=== PATIENT | female | born 1980 | race Caucasian/White ===

== ENCOUNTER 2018-12-30 16:34 | Inpatient (IN) | payer BC ==
[~2018-12-30] VITALS: Ht 167.6 cm; Wt 109.7 kg
[~2018-12-30 16:34] MED LIST: EST1T PO
[2018-12-30] MEDS ORDERED: morphine 4 MG/ML inj SYRINge IV PRN (16:50)
[2018-12-30] MEDS ORDERED: ondansetron/PF 4mg/2ml inj IV ONE (16:50)
[2018-12-30] MEDS ORDERED: normal saline 1000ML IV soln IVB ONE (16:50)
[2018-12-30] MEDS ORDERED: iohexol 300mg/ml 100ml inj. ONE (17:15)
--- NOTE | 2018-12-30 17:20 | NUR ---
PT TO CT
[2018-12-30 17:28] LABS: URINE HCG NEGATIVE (NEG)
[2018-12-30 17:29] LABS: CLARITY,URINE CLEAR (Clear); COLOR,URINE YELLOW (Yellow); GLUCOSE, URINE NEGATIVE (Neg); KETONES,URINE NEGATIVE (Neg); LEUKOCYTE ESTERASE ,URINE NEGATIVE (Neg); NITRITES, URINE NEGATIVE (Neg); OCCULT BLOOD,URINE TRACE-INTACT (Neg); PH,URINE 7.5 (4.8-8.0); PROTEIN,URINE NEGATIVE (Neg); UROBILINOGEN,URINE 0.2 E.U/dL (0.2-1.0)
[2018-12-30 17:32] LABS: UA COLLECTION TYPE CLN CATCH MIDSTREAM
[2018-12-30 17:35] LABS: BASOPHILS % (AUTO) 0.3 % (0-1); EOSINOPHILS % (AUTO) 0.2 % (0-6); HEMATOCRIT 43.7 % (35.0-45.0); HEMOGLOBIN 14.8 g/dl (12.0-16.0); LYMPHOCYTES # (AUTO) 0.5 X10'3 (1.1-4.8); LYMPHOCYTES % (AUTO) 5.3 % (21-51); MEAN CORPUSCULAR HEMOGLOBIN 29.8 PG (27.0-31.0); MEAN CORPUSCULAR HGB CONC 33.9 g/dL (33.0-36.5); MEAN CORPUSCULAR VOLUME 88.1 FL (78-98); MEAN PLATELET VOLUME 8.2 FL (7.4-10.4); MONOCYTES # (AUTO) 0.6 X10'3 (0-0.9); NEUTROPHILS # (AUTO) 8.7 X10'3 (1.8-7.7); NEUTROPHILS % (AUTO) 88.2 % (42-75); PLATELET COUNT 172 X10'3 (140-440); RED BLOOD COUNT 4.95 X10'6 (4.20-5.60); RED CELL DISTRIBUTION WIDTH 12.8 % (11.5-14.5); WHITE BLOOD COUNT 9.9 X10'3 (4.5-11.0)
[2018-12-30 17:36] LABS: SQUAMOUS EPITHELIAL CELL,UR MODERATE /LPF (FEW)
[2018-12-30 17:37] LABS: BACTERIA,URINE 1+ /HPF (Neg); WBC,URINE 0-4 /HPF (0-4)
[2018-12-30 17:40] LABS: ALANINE AMINOTRANSFERASE 30 U/L (12-78); ALBUMIN 4.1 G/DL (3.4-5.0); ALKALINE PHOSPHATASE 54 IU/L (46-116); ANION GAP 7 (8-16); ASPARTATE AMINO TRANSFERASE 17 U/L (10-37); BILIRUBIN,TOTAL 0.7 MG/DL (0.1-1.0); BLOOD UREA NITROGEN 10 MG/DL (7-18); BUN/CREATININE RATIO 12.2 (6.6-38.0); CALCIUM 8.7 MG/DL (8.5-10.1); CHLORIDE 103 MMOL/L (99-107); CREATININE 0.82 MG/DL (0.40-0.90); GLUCOSE 102 MG/DL (70-104); SODIUM 139 MMOL/L (135-145); TOTAL CARBON DIOXIDE 28.7 MMOL/L (24-32); TOTAL PROTEIN 8.1 G/DL (6.4-8.2); eGFR 77 ML/MIN
[2018-12-30] MEDS ORDERED: ketorolac trometh. 30mg/ml inj. IV ONE (19:00)
[2018-12-30] MEDS ORDERED: piperacillin/tazo 3.375gm/50ml 50 ML IV ONE (19:55)
[2018-12-30] MEDS ORDERED: morphine 2 MG/ML inj. syringe IV PRN (21:15)
[2018-12-30] MEDS ORDERED: ondansetron/PF 4mg/2ml inj IV PRN (21:15)
--- NOTE | 2018-12-30 22:40 | NUR ---
Patient in room [facility]. I have received report from Nayana Wyatt Rn and had the opportunity to ask questions and will assume patient care upon arrival to the floor. Addendum: 12/31/18 at 0246 by Rkia Gibbons RN Amended: Links added.
--- NOTE | 2018-12-30 22:45 | NUR ---
received pt to the floor in w/c and used brp upon entering the room. pt given chicken broth and then made Npo after this. answered questions for admit. pt a/o pleasant without s&s of distress.
--- NOTE | 2018-12-30 23:30 | NUR ---
admit completed and no complaints at this time.
[2018-12-31] VITALS (15 sets, daily range): BP systolic 112–129; BP diastolic 54–82
--- NOTE | 2018-12-31 | NUR ---
surgical hibicleans/betasept shower done and pt back in the room for this. in a clean bed.
--- NOTE | 2018-12-31 00:30 | NUR ---
pt set up to iv fluids now c/o abd pain 10/03 and medicated with 2mg of morphine iv for this.
[2018-12-31] MEDS: morphine 2 MG/ML inj. syringe IV PRN ×2 (00:43→12:02)
[2018-12-31] MEDS: normal saline 1000ml 1,000 ML IV SCH ×3 (00:43→15:34)
--- NOTE | 2018-12-31 01:30 | NUR ---
pt given warm blanket per request.
--- NOTE | 2018-12-31 02:51 | NUR ---
pt resting eyes closed without changes at this time. earlier preop teaching done and pt used the is unit.
--- NOTE | 2018-12-31 03:27 | NUR ---
resting without changes.
[2018-12-31] MEDS: piperacillin/tazo 3.375gm/50ml 50 ML IV SCH ×3 (04:33→20:41)
--- NOTE | 2018-12-31 05:14 | NUR ---
up to brp to void then back to bed. pt npo
[2018-12-31 06:12] LABS: HEMOGLOBIN 12.5 g/dl (12.0-16.0); WHITE BLOOD COUNT 4.4 X10'3 (4.5-11.0)
[2018-12-31 06:16] LABS: BASOPHILS % (AUTO) 0.3 % (0-1); EOSINOPHILS % (AUTO) 0.6 % (0-6); LYMPHOCYTES # (AUTO) 0.9 X10'3 (1.1-4.8); LYMPHOCYTES % (AUTO) 19.9 % (21-51); MEAN CORPUSCULAR HEMOGLOBIN 29.9 PG (27.0-31.0); MEAN CORPUSCULAR HGB CONC 33.7 g/dL (33.0-36.5); MEAN CORPUSCULAR VOLUME 88.9 FL (78-98); MEAN PLATELET VOLUME 7.8 FL (7.4-10.4); MONOCYTES # (AUTO) 0.5 X10'3 (0-0.9); MONOCYTES % (AUTO) 10.3 % (2-12); NEUTROPHILS % (AUTO) 68.9 % (42-75); PLATELET COUNT 134 X10'3 (140-440); RED BLOOD COUNT 4.16 X10'6 (4.20-5.60)
--- NOTE | 2018-12-31 06:20 | NUR ---
Patient in room [facility]. I have received report from ALIN Meléndez and had the opportunity to ask questions and assume patient care.
--- NOTE | 2018-12-31 06:36 | NUR ---
Problems reprioritized. Patient report given, questions answered & plan of care reviewed with Melissa Dumas. Addendum: 12/31/18 at 0636 by Rika Gibbons RN Amended: Links added.
[2018-12-31 06:41] LABS: ALANINE AMINOTRANSFERASE 24 U/L (12-78); ALBUMIN 3.1 G/DL (3.4-5.0); ALBUMIN/GLOBULIN RATIO 0.9 (1.1-1.5); ALKALINE PHOSPHATASE 43 IU/L (46-116); ANION GAP 7 (8-16); ASPARTATE AMINO TRANSFERASE 10 U/L (10-37); BILIRUBIN,TOTAL 0.6 MG/DL (0.1-1.0); BLOOD UREA NITROGEN 9 MG/DL (7-18); BUN/CREATININE RATIO 12.3 (6.6-38.0); CALCIUM 7.4 MG/DL (8.5-10.1); CHLORIDE 107 MMOL/L (99-107); CREATININE 0.73 MG/DL (0.40-0.90); GLUCOSE 98 MG/DL (70-104); POTASSIUM 3.5 MMOL/L (3.5-5.1); SODIUM 141 MMOL/L (135-145); TOTAL CARBON DIOXIDE 27.5 MMOL/L (24-32); TOTAL PROTEIN 6.4 G/DL (6.4-8.2); eGFR 88 ML/MIN
[2018-12-31] MEDS ORDERED: ceFOXitin 2 GM ADDvantage bag 100 ML IV ONE (09:10)
[2018-12-31 10:12] LABS: PARTIAL THROMBOPLASTIN TIME 31 SECONDS (22-32)
[2018-12-31] MEDS ORDERED: BUPIVAcaine/PF 2.5 mg/ml (0.25%) 30ml vial ONE (17:09)
[2018-12-31] MEDS ORDERED: LIDOcaine 1% 30ml preserv. free vial ONE (17:09)
[2018-12-31] MEDS ORDERED: sevoflurane 250ml liquid IH ONE (17:36)
[2018-12-31] MEDS ORDERED: midazolam 2 mg/2 ml injection ONE ×2 (17:41)
[2018-12-31] MEDS ORDERED: fentaNYL /PF 50mcg/ml 5ml ampule ONE (17:43)
[2018-12-31] MEDS ORDERED: dexamethasone sod phosphate 4mg/ml inj. ONE (18:21)
[2018-12-31] MEDS ORDERED: ondansetron/PF 4mg/2ml inj ONE (18:21)
[2018-12-31] MEDS ORDERED: propofol inj 20 ML IV ONE (18:22)
[2018-12-31] MEDS ORDERED: rocuronium 10mg/ml inj IV ONE (18:22)
--- NOTE | 2018-12-31 18:25 | NUR ---
Problems reprioritized. Patient report given, questions answered & plan of care reviewed with ALIN Meléndez.
[2018-12-31] MEDS ORDERED: neostigmine methylsulfate 1 MG/ML 10ml vial ONE (18:37)
[2018-12-31] MEDS ORDERED: glycopyrrolate 0.2mg/ml inj ONE (18:37)
--- NOTE | 2018-12-31 18:37 | NUR ---
Patient in room [facility]. I have received report from TOBY OGDEN and had the opportunity to ask questions and assume patient care. Addendum: 12/31/18 at 1837 by Rika Gibbons RN Amended: Links added.
[2018-12-31] MEDS ORDERED: HYDROcodone/acetaminophen 10/325mg tab PO PRN (18:50)
[2018-12-31] MEDS ORDERED: ondansetron/PF 4mg/2ml inj IV PRN ×2 (18:50→18:55)
[2018-12-31] MEDS ORDERED: HYDROcodone/acetaminophen 5mg/325mg tablet PO PRN (18:50)
[2018-12-31] MEDS ORDERED: ringers solution, lacted 1,000 ML IV SCH (18:53)
[2018-12-31] MEDS ORDERED: meperidine/PF 25mg/ml syringe IV PRN ×3 (18:55)
[2018-12-31] MEDS ORDERED: morphine 4 MG/ML inj SYRINge IV PRN ×2 (18:55)
[2018-12-31] MEDS ORDERED: proCHLORperazine 10 MG/2 ml inj IV PRN (18:55)
--- NOTE | 2018-12-31 19:15 | NUR ---
Patient in room [facility]. I have received report from chemical recovery operator and had the opportunity to ask questions and will assume patient care upon arrival back to the room.
--- NOTE | 2018-12-31 19:15 | NUR ---
Report called to receiving nurse. Transferred via BED Belongings . Special Issues communicated to receiving nurse.AWAKE AND ORIENTED. VITALS STABLE. DRESSINGS DI. TOBY PAIN. TO SURGICAL RM 359C AT THIS TIME.
--- NOTE | 2018-12-31 19:30 | NUR ---
pt back from the recovery room in bed and a/o drowsy on 02. and son at bedside. x 3 lap sites dry and intact bandaides and using Is unit up to 2500. pt encouraged to ambulate with hypoactive bowel sounds. ice chips given to pt.
--- NOTE | 2018-12-31 20:40 | NUR ---
up with assist to bathroom to ambulated then up walking with one in the persaud. teaching on how to get in and out of bed done no complaints of pain.
--- NOTE | 2018-12-31 22:28 | NUR ---
PT UP AMBULATING SECOND [id number] FT TOLERATED WELL.
[2019-01-01] VITALS: BP 117/71
[2019-01-01] MEDS: morphine 2 MG/ML inj. syringe IV PRN (00:50)
--- NOTE | 2019-01-01 00:50 | NUR ---
medicated for pain with 2mg of morphine and new bag on iv fluids hung. up to brp to void.
[2019-01-01] MEDS: normal saline 1000ml 1,000 ML IV SCH ×2 (00:51→10:57)
--- NOTE | 2019-01-01 01:30 | NUR ---
up bathroom then ambulating in the persaud no s&s of distress at this time.
--- NOTE | 2019-01-01 03:24 | NUR ---
resting on right side eyes closed no changes.
[2019-01-01 04:00] VITALS: BP 119/74
--- NOTE | 2019-01-01 04:04 | NUR ---
resting right side without changes.
[2019-01-01] MEDS: piperacillin/tazo 3.375gm/50ml 50 ML IV SCH ×2 (04:22→12:00)
--- NOTE | 2019-01-01 04:40 | NUR ---
PT UP AMBULATING IN THE ABAD FOR 2 LAPS AND USING THE IS UNIT.
[2019-01-01 05:00] LABS: BASOPHILS % (AUTO) 0.1 % (0-1); EOSINOPHILS % (AUTO) 0.1 % (0-6); HEMATOCRIT 38.2 % (35.0-45.0); HEMOGLOBIN 13.3 g/dl (12.0-16.0); LYMPHOCYTES # (AUTO) 0.4 X10'3 (1.1-4.8); LYMPHOCYTES % (AUTO) 5.7 % (21-51); MEAN CORPUSCULAR HEMOGLOBIN 30.6 PG (27.0-31.0); MEAN CORPUSCULAR HGB CONC 34.7 g/dL (33.0-36.5); MEAN CORPUSCULAR VOLUME 88.1 FL (78-98); MONOCYTES # (AUTO) 0.1 X10'3 (0-0.9); MONOCYTES % (AUTO) 1.9 % (2-12); NEUTROPHILS # (AUTO) 6.1 X10'3 (1.8-7.7); NEUTROPHILS % (AUTO) 92.2 % (42-75); PLATELET COUNT 154 X10'3 (140-440); RED BLOOD COUNT 4.34 X10'6 (4.20-5.60); RED CELL DISTRIBUTION WIDTH 12.6 % (11.5-14.5); WHITE BLOOD COUNT 6.6 X10'3 (4.5-11.0)
[2019-01-01 05:11] LABS: ALANINE AMINOTRANSFERASE 27 U/L (12-78); ALBUMIN 3.3 G/DL (3.4-5.0); ALBUMIN/GLOBULIN RATIO 0.9 (1.1-1.5); ALKALINE PHOSPHATASE 44 IU/L (46-116); ANION GAP 11 (8-16); ASPARTATE AMINO TRANSFERASE 15 U/L (10-37); BILIRUBIN,TOTAL 0.4 MG/DL (0.1-1.0); BLOOD UREA NITROGEN 5 MG/DL (7-18); BUN/CREATININE RATIO 7.9 (6.6-38.0); CALCIUM 9.1 MG/DL (8.5-10.1); CHLORIDE 108 MMOL/L (99-107); CREATININE 0.63 MG/DL (0.40-0.90); GLUCOSE 133 MG/DL (70-104); POTASSIUM 4.2 MMOL/L (3.5-5.1); SODIUM 143 MMOL/L (135-145); TOTAL CARBON DIOXIDE 24.5 MMOL/L (24-32); TOTAL PROTEIN 7.1 G/DL (6.4-8.2); eGFR > 90 ML/MIN
--- NOTE | 2019-01-01 05:48 | NUR ---
Student documentation: I have reviewed and agree with all interventions, assessments performed and documented by MARGE OGDEN STUDENT.Student Medication Administration: For this medication-pass time frame, all medication were reviewed, dispensed, administered and documented per hospital policy by MARGE Lacey RN. Addendum: 01/01/19 at 0549 by Rika Gibbons RN Amended: Links added.
--- NOTE | 2019-01-01 06:42 | NUR ---
Problems reprioritized. Patient report given, questions answered & plan of care reviewed with Benjamín Mejia. Addendum: 01/01/19 at 0642 by Rika Gibbons RN Amended: Links added.
[2019-01-01 07:17] VITALS: BP 99/70
[2019-01-01 11:00] VITALS: BP 124/75
--- NOTE | 2019-01-01 14:12 | NUR ---
PATIENT STABLE AND APPROPRIATE FOR DISCHARGE, IV TAKEN OUT, ALL BELONGINGS SENT WITH PATIENT, EDUCATION GIVEN, PATIENT TAKEN TO LOBBY TO AWAITING CAR TO GO HOME
== END 2019-01-01 14:06 | disposition home or self-care (01) | DRG 337 ==
LOC: ER 16:35 → ED HOLD 21:52 → EDBEDREQ 22:11 → SUR 3N 22:55
PROVIDERS: ADMIT Internal Medicine; ATTEND Family Medicine
PROC: BW211ZZ Computerized Tomography (CT Scan) of Abdomen and Pelvis using Low Osmolar Contrast (ICD-10-PCS; 2018-12-30)
PROC: 0DNN4ZZ Release Sigmoid Colon, Percutaneous Endoscopic Approach (ICD-10-PCS; 2018-12-31)
PROC: 0DTJ4ZZ Resection of Appendix, Percutaneous Endoscopic Approach (ICD-10-PCS; principal; 2018-12-31 17:36)
DX: K35.80 Unspecified acute appendicitis (principal); K66.0 Peritoneal adhesions (postprocedural) (postinfection); E66.9 Obesity, unspecified; Z90.710 Acquired absence of both cervix and uterus; Z98.891 History of uterine scar from previous surgery; Z68.39 Body mass index [BMI] 39.0-39.9, adult; Z79.899 Other long term (current) drug therapy
CPT/HCPCS: 96365; 96366; 96375; 99285; Z7506; Z7508; 36415; 74178; 80053; 81001; 81025; 85025; 85610; 85730; 87081; A4215; A4618; A7000; G0378; J0694; J1100; J1885; J2001; J2175; J2250; J2270; J2405; J2543; J2704; J2710; J3010; J3490; J7030; J7120; Q9967